=== PATIENT | male | born 1995 | race Two or more races ===

== ENCOUNTER 2022-08-21 13:14 | Emergency (ER) | payer OTHER ==
[~2022-08-21] VITALS: Ht 193 cm; Wt 83.0 kg
[2022-08-21 14:01] VITALS: BP 118/77
[2022-08-21] MEDS ORDERED: CEPH500C2 MT ×3 (16:57→17:36)
[2022-08-21] MEDS ORDERED: SULF1TAB48 MT ×3 (16:57→17:36)
[2022-08-21] MEDS ORDERED: IBUP-2029 MT ×3 (16:58→17:36)
[2022-08-21] MEDS ORDERED: IBUPROFEN 600MG TABLET PO ONE (17:00)
[2022-08-21] MEDS ORDERED: SULFAMETHOXAZOLE/TRIMETHOPRIM 800/160MG TABLET PO ONE (17:00)
[2022-08-21] MEDS ORDERED: CEPHALEXIN 250MG CAPSULE PO ONE (17:00)
== END 2022-08-21 18:47 | disposition home or self-care (01) ==
LOC: ER 13:14
DX: L03.115 Cellulitis of right lower limb (principal); Z79.899 Other long term (current) drug therapy
CPT/HCPCS: 99281